=== PATIENT | female | born 1980 ===

== ENCOUNTER 2018-04-19 13:51 | Emergency (ER) | payer MEDICAID ==
[2018-04-19 13:55] VITALS: BMI 20.1
[2018-04-19 13:56] VITALS: BP 147/93; PULSE 94; RESP 20; TEMP 98.5; O2SAT 100
--- NOTE | 2018-04-19 14:27 | ED PDOC ---
HPI: Back Time Seen by Provider: 04/19/18 14:05 Chief Complaint (Nursing): Back Pain Chief Complaint (Provider): Back Pain History Per: Patient History/Exam Limitations: no limitations Onset/Duration Of Symptoms: Days (1x) Current Symptoms Are (Timing): Still Present Severity: Moderate Previous Symptoms: Back Pain Associated Symptoms: None Exacerbating Factor(s): Movement Additional Complaint(s): 38 year old female with a past medical history of endometriosis presents to the ED for an evaluation of right lower back pain that radiates into her right leg that started last night. Patient reports 9/10 pain. Patient reports having a history of sciatica with similar symptoms in the past. Patient reports that her symptoms were unrelieved after taking 400 mg Ibuprofen last night. Patent states that her symptoms worsen with movement. Otherwise: (-) falls (-) trauma, (-) history of back surgery, (-) fevers, (-) chills, (-) urinary symptoms, (-) saddle anesthesia, (-) IV drug use, (-) chest pain, (-) shortness of breath, (-) numbness, (-) paresthesias, (-) weakness, (-) acute bowel or bladder dysfunction, (-) fever PMD: Quinn Godinez MD Past Medical History Reviewed: Historical Data, Nursing Documentation, Vital Signs Vital Signs: Last Vital Signs Temp 98.5 F 04/19/18 13:55 Pulse 94 H 04/19/18 13:55 Resp 20 04/19/18 13:55 BP 147/93 H 04/19/18 13:55 Pulse Ox 100 04/19/18 13:55 - Medical History Other PMH: endometriosis - Surgical History Other surgeries: D&C, laparoscopy - Family History Family History: States: No Known Family Hx - Social History Current smoker - smoking cessation education provided: Yes (1/2 pack daily) Alcohol: Social Drugs: Denies - Home Medications Home Medications: Ambulatory Orders Medication Instructions Recorded Cyclobenzaprine [Cyclobenzaprine 10 mg PO Q8 PRN #12 tab 04/19/18 HCl] Meloxicam [Mobic] 15 mg PO DAILY #10 tab 04/19/18 - Allergies Allergies/Adverse Reactions: Allergies Allergy/AdvReac Type Severity Reaction Status Date / Time No Known Allergies Allergy Verified 04/19/18 14:03 Review of Systems ROS Statement: Except As Marked, All Systems Reviewed And Found Negative Constitutional: Negative for: Fever, Chills Cardiovascular: Negative for: Chest Pain Respiratory: Negative for: Shortness of Breath Genitourinary Female: Negative for: Dysuria, Frequency, Incontinence Musculoskeletal: Positive for: Back Pain Neurological: Negative for: Weakness, Numbness, Other (saddle anestheisa, paresthesias) Physical Exam - Reviewed Nursing Documentation Reviewed: Yes Vital Signs Reviewed: Yes - Physical Exam Comments: GENERAL APPEARANCE: Patient is awake, alert, oriented x 3, in no acute distress. SKIN: Warm, dry; (-) cyanosis. ENMT: Mucous membranes moist. Airway patent, (-) stridor. NECK: Supple, FROM CHEST AND RESPIRATORY: (-) rales, (-) rhonchi, (-) wheezes; breath sounds equal bilaterally. Respirations even and nonlabored. HEART AND CARDIOVASCULAR: (-) irregularity ABDOMEN AND GI: Soft; (-) tenderness; (-) palpable mass (-) CVA tenderness. BACK: (+) right paralumbar tenderness, (+) spasm, (-) direct bony tenderness, (-) deformity. Straight leg raising (+) right leg at 15 degrees. EXTREMITIES: (-) deformity. Distal pulses good bilaterally. NEURO AND PSYCH: Mental status as above. Intact sensation bilaterally; normal strength in extension of the knees, plantar and dorsiflexion of the toes. Gait: limping in ED. Speech: clear. (-) facial asymmetry (-) aphasia - Laboratory Results Urine POC: Negative Urine dip results: Negative for: Leukocyte Esterase, Blood, Nitrate, Ketones, Glucose, Bilirubin, Protein - ECG O2 Sat by Pulse Oximetry: 100 (RA) Pulse Ox Interpretation: Normal Medical Decision Making Medical Decision Makin Clinical impression: 38 year old female with acute back pain, probable sciatica. Initial plan: * upreg * udip * flexeril 10 mg PO (not driving home) * toradol 30 mg IM * reevaluation 1520 Upreg: negative Udip unremarkable. 1545 Patient with persistent back pain upon re-evaluation. Patient reports no relief of symptoms at this time. Tramadol 50mg PO ordered. 1655 On re-evaluation, patient reports improvement of symptoms. On exam, patient rem ains AAOx3, in no acute distress. Lungs clear to auscultation, cardiac RRR, repeat neuro exam shows no focal findings. Vitals stable. Lab/Diagnostic results d/w the patient in great detail. Diagnosis of acute back pain, sciatica d/w the patient. Based on history, exam and diagnostic results, plan will be for outpatient follow up with PMD/ortho. Patient instructed to follow-up with pmd / referral provided / the clinic in 1- 2 days without fail. Advised to take medication as prescribed. Return to the emergency room at any time for any new or worsening symptoms. Patient states she fully agrees with and understands discharge instructions. States that she agrees with the plan and disposition. Verbalized and repeated discharge instructions and plan. I have given the patient opportunity to ask any additional questions. Scribe Attestation: Documented by Rubi Corcoran, acting as a scribe for Rubi Lozano Provider Scribe Attestation: All medical record entries made by the Scribe were at my direction and personally dictated by me. I have reviewed the chart and agree that the record accurately reflects my personal performance of the history, physical exam, medical decision making, and the department course for this patient. I have also personally directed, reviewed, and agree with the discharge instructions and disposition. Disposition - Clinical Impression Clinical Impression: Low back pain, Sciatica - Patient ED Disposition Is Patient to be Admitted: No Counseled Patient/Family Regarding: Studies Performed, Diagnosis, Need For Fo llowup, Rx Given - Disposition Referrals: Tamera Benito MD [Staff Provider] - Quinn Godinez MD [Family Provider] - Disposition: Routine/Home Disposition Time: 16:55 Condition: STABLE Additional Instructions: The emergency medical care you received today was directed at your acute symptoms. If you were prescribed any medication, please fill it and take as directed. It may take several days for your symptoms to resolve. Return to the Emergency Department if your symptoms worsen, do not improve, or if you have any other problems. Please contact your doctor in 2 days for re-evaluation and follow up / or call one of the physicians/clinics you have been referred to that are listed on the Patient Visit Information form that is included in your discharge packet. Bring any paperwork you were given at discharge with you along with any medications you are taking to your follow up visit. Our treatment cannot replace ongoing medical care by a primary care provider (PCP) outside of the emergency department. Prescriptions: Cyclobenzaprine [Cyclobenzaprine HCl] 10 mg PO Q8 PRN #12 tab PRN Reason: Muscle Spasm Meloxicam [Mobic] 15 mg PO DAILY #10 tab Instructions: Sciatica, Low Back Pain in Adults, Muscle and Bone Pain (DC), Sciatica Exercises Forms: [facility] (Greenlandic) Print Language: CYMRAES - POA Present On Arrival: None
== END 2018-04-19 17:25 | disposition home or self-care (01) ==
LOC: MERGE 13:51 → H.ER 13:51
DX: M54.31 Sciatica, right side (principal)
CPT/HCPCS: 81025; 96372; 99283; J1885